=== PATIENT | female | born 1975 | race Caucasian/White ===

== ENCOUNTER 2017-02-25 06:23 | Emergency (ER) | payer SELFPAY ==
[~2017-02-25] VITALS: Ht 172.7 cm; Wt 60.2 kg
[~2017-02-25 06:23] MED LIST: AMOX875 PO; BENZ100 PO; TYLE3 PO; ZITH250T PO
[2017-02-25 06:29] VITALS: BP 115/92; PULSE 94; RESP 14; TEMP 97.9; O2SAT 98
[2017-02-25] MEDS ORDERED: traMADol HCL 50 MG TAB PO ONE (06:45)
[2017-02-25] MEDS ORDERED: SULFAMETHOXAZOLE-TRIMETHOPRIM 400-80 MG TAB PO ONE (06:45)
[2017-02-25] MEDS ORDERED: BACT800T5 PO (06:50)
[2017-02-25] MEDS ORDERED: ULTR50TA5 PO (06:50)
--- NOTE | 2017-02-25 06:51 | PD ---
HPI Chief Complaint: Skin Problem Time Seen by Provider: 06:38 Travel History International Travel<30 days: No Contact w/Intl Traveler<30days: No Traveled to known affect area: No History of Present Illness HPI C/O INSECTS CRAWLING ALL OVER HER AND (PT POINTS TO HER SKIN, TO SHOW ME SOME, WHICH HAS NO INSECTS ON, HOWEVER I DID NOTE THAT SHE WAS PICKING HER SKIN).... WHEN ASKED PATIENT DID STATE THAT SHE HAS BEEN USING METH RECENTLY....DENIES ANY SI/HI AT THIS POINT, AND I ADVISED PATIENT THAT METH CAUSES TACTILE AND SOMETIME VISUAL HALLUCINATIONS OF SENSATION OF BUGS... PATIENT NODDED IN UNDERSTANDING PFSH Past Medical History Anxiety: Yes Diminished Hearing: No Musculoskeletal: Yes (MUSCLE SPASMS FROM PREVIOUS BACK INJURY) Tetanus Vaccination: < 5 Years Influenza Vaccination: No ?: Not LMP: 02/17/17 : 2 Para: 1 : 1 Tubal Ligation: Yes Social History Alcohol Use: Yes ("HARDLY EVER DRINK ANYMORE" STATED 02/25/17) Tobacco Use: Yes (1 PPD) Substance Use: No Allergies-Medications (Allergen,Severity, Reaction): Coded Allergies: No Known Allergies (Verified , 02/25/17) Reported Meds & Prescriptions Reported Meds & Active Scripts Active Ultram (Tramadol HCl) 50 Mg Tab 50 Mg PO Q6H PRN Bactrim DS (Sulfamethoxazole-Trimethoprim) 800-160 Mg Tab 1 Tab PO BID Review of Systems Except as stated in HPI: all other systems reviewed are Neg Physical Exam Narrative GENERAL: SKIN: patient has multiple lesions throughout ventral aspect of her forearms, abdomen c/w skin picking...no lesions on posterior aspect of body where her hands can't reach, also missing from her LE. HEAD: Atraumatic. Normocephalic. EYES: Pupils equal and round. No scleral icterus. No injection or drainage. ENT: No nasal bleeding or discharge. Mucous membranes pink and moist. NECK: Trachea midline. No JVD. CARDIOVASCULAR: Regular rate and rhythm. RESPIRATORY: No accessory muscle use. Clear to auscultation. Breath sounds equal bilaterally. GASTROINTESTINAL: Abdomen soft, non-tender, nondistended. Hepatic and splenic margins not palpable. MUSCULOSKELETAL: Extremities without clubbing, cyanosis, or edema. No obvious deformities. NEUROLOGICAL: Awake and alert. No obvious cranial nerve deficits. Motor grossly within normal limits. Five out of 5 muscle strength in the arms and legs. Normal speech. PSYCHIATRIC: Appropriate mood and affect; insight and judgment normal. denies SI/HI Data Data Last Documented VS Vital Signs Date Time Temp Pulse Resp B/P Pulse Ox O2 Delivery O2 Flow Rate FiO2 02/25/17 06:29 97.9 94 14 115/92 98 Orders Sulfameth-Trimeth 400-80 Mg (Bactrim 400 (02/25/17 06:45) Tramadol (Ultram) (02/25/17 06:45) MDM Medical Decision Making Medical Screen Exam Complete: Yes Emergency Medical Condition: Yes Differential Diagnosis SKIN LESION LIKELY SECONDARY TO SELF INDUCED PICKING (NO TRACK LINARES) AND NOW ONLY SECONDARY CELLULITIS IN CERTAIN ONES Narrative Course SEE ABOVE Diagnosis Primary Impression: SKIN LESIONS Additional Impression: Cellulitis Qualified Code: L03.119 - Cellulitis of upper extremity, unspecified laterality Med/Other Pt SpecificInfo: Prescription(s) given Scripts Tramadol (Ultram)50 Mg Tab50 Mg PO Q6H PRN (PAIN) #10 TAB Ref 0 Prov:Flaquito Stubbs MD 02/25/17 Sulfamethoxazole-Trimethoprim (Bactrim DS)800-160 Mg Tab1 Tab PO BID #20 TAB Prov:Flaquito Stubbs MD 02/25/17 Disposition: 01 DISCHARGE HOME Condition: Stable Flaquito Stubbs MD Feb 25, 2017 06:51
== END 2017-02-25 07:19 | disposition home or self-care (01) ==
LOC: PHED 06:23
DX: L98.9 Disorder of the skin and subcutaneous tissue, unspecified (principal); L03.119 Cellulitis of unspecified part of limb; R44.2 Other hallucinations; F17.200 Nicotine dependence, unspecified, uncomplicated; Z86.59 Personal history of other mental and behavioral disorders; Z87.39 Personal history of other diseases of the musculoskeletal system and connective tissue
CPT/HCPCS: 99284

== ENCOUNTER 2017-03-10 23:00 | Emergency (ER) | payer OTHER ==
[~2017-03-10] VITALS: Ht 165.1 cm; Wt 60.0 kg
[~2017-03-10 23:00] MED LIST changes: -AMOX875 PO; +BACT800T5 PO; -BENZ100 PO; -TYLE3 PO; +ULTR50TA5 PO; -ZITH250T PO
[2017-03-10 23:16] VITALS: BP 110/64; PULSE 88; RESP 16; TEMP 98.2; O2SAT 97
--- NOTE | 2017-03-10 23:24 | PD ---
HPI Chief Complaint: psychiatric Time Seen by Provider: 23:06 Travel History International Travel<30 days: No Contact w/Intl Traveler<30days: No Traveled to known affect area: No History of Present Illness HPI 41-year-old female with headache acted and brought in for psychiatric evaluation. Patient was reported to have visual hallucination by her boyfriend. Patient states that she has bugs on her skin of the arms and legs for the past 2 weeks. Patient states that she was seen at [facility] in [facility] twice and was treated for scabies. Patient states that she put the cream on the skin between 10 minutes to half an hour each time. Patient states that she had persistent itching rash on the arms and legs the past 2 weeks. Patient states that she has been seeing worms and bugs coming out from the lesions on the skin. Patient complained of itching from the rash. Patient denies any headache. Patient denies any chest pain or shortness of breath. Patient denies abdominal pain. Patient denies any fever chills. Patient denies any chance of being . Patient states that she drinks alcohol occasionally. Patient states that she smoked pot once in a while. Patient states that she has been taking oral Dilaudid recently. PFSH Past Medical History Anxiety: Yes Diminished Hearing: No Musculoskeletal: Yes (MUSCLE SPASMS FROM PREVIOUS BACK INJURY) : 2 Para: 1 : 1 Tubal Ligation: Yes Social History Alcohol Use: Yes ("HARDLY EVER DRINK ANYMORE" STATED 02/25/17) Tobacco Use: Yes (1 PPD) Substance Use: No Allergies-Medications (Allergen,Severity, Reaction): Coded Allergies: No Known Allergies (Verified , 03/10/17) Reported Meds & Prescriptions Reported Meds & Active Scripts Active No Active Prescriptions or Reported Medications Review of Systems General / Constitutional: No: Fever Eyes: No: Visual changes HENT: No: Headaches Cardiovascular: No: Chest Pain or Discomfort Respiratory: No: Shortness of Breath Gastrointestinal: No: Abdominal Pain Genitourinary: No: Dysuria Musculoskeletal: No: Pain Skin: Positive Rash, Positive Itching Neurologic: No: Weakness Psychiatric: No: Depression Endocrine: No: Polydipsia Hematologic/Lymphatic: No: Easy Bruising Physical Exam Narrative GENERAL: Well-nourished, well-developed patient. SKIN: Focused skin assessment warm/dry. Patient has diffuse papular rash on the arms and legs upper chest. Patient also has mild papular rash on the abdominal wall. No obvious rash in the back or the groin area. HEAD: Normocephalic. EYES: No scleral icterus. No injection or drainage. NECK: Supple, trachea midline. No JVD or lymphadenopathy. CARDIOVASCULAR: Regular rate and rhythm without murmurs, gallops, or rubs. RESPIRATORY: Breath sounds equal bilaterally. No accessory muscle use. GASTROINTESTINAL: Abdomen soft, non-tender, nondistended. MUSCULOSKELETAL: No cyanosis, or edema. BACK: Nontender without obvious deformity. No CVA tenderness. Neurologic exam: Patient is awake and alert oriented 3. No obvious focal neurological deficit. Data Data Orders Complete Blood Count With Diff (03/10/17 23:17) Comprehensive Metabolic Panel (03/10/17 23:17) Urinalysis - C+S If Indicated (03/10/17 23:17) Psych Screen (03/10/17 23:17) Drug Screen, Random Urine (03/10/17 23:17) MDM Medical Decision Making Medical Screen Exam Complete: Yes Emergency Medical Condition: Yes Differential Diagnosis Differential diagnosis including schizophrenia, psychosis, substance induced mood disorder, contact dermatitis, scabies. Narrative Course 41-year-old female was Anand acted for visual hallucination and itching rash on the extremity. Scripts No Active Prescriptions or Reported Meds Augustine Ibarra MD Mar 10, 2017 23:24
[2017-03-11 00:02] LABS: AUTOMATED NEUTROPHIL # 3.5 TH/MM3 (1.8-7.7); BASOPHIL % 0.7 % (0.0-2.0); EOSINOPHIL # 0.3 TH/MM3 (0-0.4); EOSINOPHIL % 4.5 % (0.0-4.0); HEMATOCRIT 35.9 % (35.0-46.0); HEMO FLAGS DIFF FINAL; LYMPH % 35.2 % (9.0-44.0); LYMPHOCYTE # 2.4 TH/MM3 (1.0-4.8); MEAN CELL VOLUME 93.1 FL (80.0-100.0); MEAN CORPUSCULAR HEMOGLOBIN 32.2 PG (27.0-34.0); MEAN CORPUSCULAR HGB CONC 34.6 % (32.0-36.0); MONO % 6.6 % (0.0-8.0); PLATELET COUNT 209 TH/MM3 (150-450); RED BLOOD COUNT 3.85 MIL/MM3 (4.00-5.30); RED CELL DISTRIBUTION WIDTH 13.3 % (11.6-17.2); WHITE BLOOD COUNT 6.7 TH/MM3 (4.0-11.0)
[2017-03-11 00:14] LABS: BACTERIA, URINE OCC /hpf; BLOOD, URINE NEG (NEG); GLUCOSE,URINE NEG (NEG); KETONE, URINE NEG (NEG); MUCUS URINE FEW /lpf (OCC); NITRITE,URINE NEG (NEG); SQUAMOUS EPITHELIAL CELL URINE 14 /hpf (0-5); URINE COLOR YELLOW (YELLW/STRAW)
[2017-03-11 00:15] LABS: COMMENT (UR) CULT NOT INDICATED; CULTURE IF INDICATED CULT NOT INDICATED
[2017-03-11 00:18] LABS: AMPHETAMINE, URINE POS (NEG); BARBITURATES, URINE NEG (NEG); COCAINE, URINE NEG (NEG)
[2017-03-11 00:21] LABS: ANION GAP 7 MEQ/L (5-15); AST (GOT) 26 U/L (15-37); BICARBONATE 28.1 MEQ/L (21.0-32.0); BLOOD UREA NITROGEN 12 MG/DL (7-18); CHLORIDE 105 MEQ/L (98-107); GLOMERULAR FILTRATION RATE 71 ML/MIN (>89); POTASSIUM 3.3 MEQ/L (3.5-5.1); SODIUM (NA) 140 MEQ/L (136-145)
[2017-03-11 00:26] LABS: ALKALINE PHOSPHATASE 67 U/L (45-117); ALT (GPT) 29 U/L (10-53); TOTAL BILIRUBIN ADULT 0.5 MG/DL (0.2-1.0)
--- NOTE | 2017-03-11 00:58 | PD ---
Physical Exam Date Seen by Provider: Mar 11, 2017 Time Seen by Provider: 00:57 Data Data Last Documented VS Vital Signs Date Time Temp Pulse Resp B/P Pulse Ox O2 Delivery O2 Flow Rate FiO2 03/10/17 23:19 16 03/10/17 23:16 98.2 88 110/64 97 Orders Complete Blood Count With Diff (03/10/17 23:17) Comprehensive Metabolic Panel (03/10/17 23:17) Urinalysis - C+S If Indicated (03/10/17 23:17) Psych Screen (03/10/17 23:17) Drug Screen, Random Urine (03/10/17 23:17) Labs Laboratory Tests Test 03/10/17 23:40 White Blood Count 6.7 TH/MM3 Red Blood Count 3.85 MIL/MM3 Hemoglobin 12.4 GM/DL Hematocrit 35.9 % Mean Corpuscular Volume 93.1 FL Mean Corpuscular Hemoglobin 32.2 PG Mean Corpuscular Hemoglobin 34.6 % Concent Red Cell Distribution Width 13.3 % Platelet Count 209 TH/MM3 Mean Platelet Volume 8.1 FL Neutrophils (%) (Auto) 53.0 % Lymphocytes (%) (Auto) 35.2 % Monocytes (%) (Auto) 6.6 % Eosinophils (%) (Auto) 4.5 % Basophils (%) (Auto) 0.7 % Neutrophils # (Auto) 3.5 TH/MM3 Lymphocytes # (Auto) 2.4 TH/MM3 Monocytes # (Auto) 0.4 TH/MM3 Eosinophils # (Auto) 0.3 TH/MM3 Basophils # (Auto) 0.0 TH/MM3 CBC Comment DIFF FINAL Differential Comment Urine Color YELLOW Urine Turbidity HAZY Urine pH 6.0 Urine Specific [place] 1.026 Urine Protein TRACE mg/dL Urine Glucose (UA) NEG mg/dL Urine Ketones NEG mg/dL Urine Occult Blood NEG Urine Nitrite NEG Urine Bilirubin NEG Urine Urobilinogen LESS THAN 2.0 MG/DL Urine Leukocyte Esterase SMALL Urine RBC 1 /hpf Urine WBC 3 /hpf Urine Squamous Epithelial 14 /hpf Cells Urine Bacteria OCC /hpf Urine Mucus FEW /lpf Microscopic Urinalysis Comment CULT NOT INDICATED Sodium Level 140 MEQ/L Potassium Level 3.3 MEQ/L Chloride Level 105 MEQ/L Carbon Dioxide Level 28.1 MEQ/L Anion Gap 7 MEQ/L Blood Urea Nitrogen 12 MG/DL Creatinine 0.88 MG/DL Estimat Glomerular Filtration 71 ML/MIN Rate Random Glucose 92 MG/DL Calcium Level 8.6 MG/DL Total Bilirubin 0.5 MG/DL Aspartate Amino Transf 26 U/L (AST/SGOT) Alanine Aminotransferase 29 U/L (ALT/SGPT) Alkaline Phosphatase 67 U/L Total Protein 6.6 GM/DL Albumin 3.6 GM/DL Urine Opiates Screen NEG Urine Barbiturates Screen NEG Urine Amphetamines Screen POS Urine Benzodiazepines Screen NEG Urine Cocaine Screen NEG Urine Cannabinoids Screen NEG [facility] Medical Record Reviewed: Yes Supervised Visit with BATSHEVA: Yes Interpretation(s) Laboratory Tests Test 03/10/17 23:40 White Blood Count 6.7 TH/MM3 Red Blood Count 3.85 MIL/MM3 Hemoglobin 12.4 GM/DL Hematocrit 35.9 % Mean Corpuscular Volume 93.1 FL Mean Corpuscular Hemoglobin 32.2 PG Mean Corpuscular Hemoglobin 34.6 % Concent Red Cell Distribution Width 13.3 % Platelet Count 209 TH/MM3 Mean Platelet Volume 8.1 FL Neutrophils (%) (Auto) 53.0 % Lymphocytes (%) (Auto) 35.2 % Monocytes (%) (Auto) 6.6 % Eosinophils (%) (Auto) 4.5 % Basophils (%) (Auto) 0.7 % Neutrophils # (Auto) 3.5 TH/MM3 Lymphocytes # (Auto) 2.4 TH/MM3 Monocytes # (Auto) 0.4 TH/MM3 Eosinophils # (Auto) 0.3 TH/MM3 Basophils # (Auto) 0.0 TH/MM3 CBC Comment DIFF FINAL Differential Comment Urine Color YELLOW Urine Turbidity HAZY Urine pH 6.0 Urine Specific [place] 1.026 Urine Protein TRACE mg/dL Urine Glucose (UA) NEG mg/dL Urine Ketones NEG mg/dL Urine Occult Blood NEG Urine Nitrite NEG Urine Bilirubin NEG Urine Urobilinogen LESS THAN 2.0 MG/DL Urine Leukocyte Esterase SMALL Urine RBC 1 /hpf Urine WBC 3 /hpf Urine Squamous Epithelial 14 /hpf Cells Urine Bacteria OCC /hpf Urine Mucus FEW /lpf Microscopic Urinalysis Comment CULT NOT INDICATED Sodium Level 140 MEQ/L Potassium Level 3.3 MEQ/L Chloride Level 105 MEQ/L Carbon Dioxide Level 28.1 MEQ/L Anion Gap 7 MEQ/L Blood Urea Nitrogen 12 MG/DL Creatinine 0.88 MG/DL Estimat Glomerular Filtration 71 ML/MIN Rate Random Glucose 92 MG/DL Calcium Level 8.6 MG/DL Total Bilirubin 0.5 MG/DL Aspartate Amino Transf 26 U/L (AST/SGOT) Alanine Aminotransferase 29 U/L (ALT/SGPT) Alkaline Phosphatase 67 U/L Total Protein 6.6 GM/DL Albumin 3.6 GM/DL Urine Opiates Screen NEG Urine Barbiturates Screen NEG Urine Amphetamines Screen POS Urine Benzodiazepines Screen NEG Urine Cocaine Screen NEG Urine Cannabinoids Screen NEG Differential Diagnosis MDM: High Differential diagnoses: Schizophrenia, schizoaffective disorder, bipolar, anxiety, depression, adjustment reaction, mood disorder NOS, ODD, depressive disorder NOS, dementia, dementia with agitation, psychosis NOS, substance induced mood disorder, intermittent explosive disorder, Asperger syndrome, infection,electrolyte abnormality, malingering. Narrative Course Mental health screening discussed with the patient. Psychiatric screen ordered. The patient is been medically cleared. Patient's drug screen positive for amphetamines. I suspect this is a formication from substance abuse. Diagnosis Primary Impression: Medical clearance for psychiatric admission Additional Impressions: Psychogenic formication Substance induced mood disorder Scripts No Active Prescriptions or Reported Meds Condition: Isaac Dey Mar 11, 2017 00:58
[2017-03-11 08:55] VITALS: BP 105/68; PULSE 84; RESP 16; O2SAT 98
[2017-03-11 11:30] VITALS: BP 95/57; PULSE 81; RESP 18; TEMP 98.2; O2SAT 97
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
[2017-03-11 14:41] VITALS: BP 101/57; PULSE 92; RESP 18; TEMP 97.6; O2SAT 97
[2017-03-11 18:00] VITALS: BP 105/65; PULSE 101; RESP 18; TEMP 96.9; O2SAT 99
[2017-03-11 22:04] VITALS: BP 100/56; PULSE 101; RESP 18
[2017-03-12 01:51] VITALS: BP 108/70; PULSE 85; RESP 18
[2017-03-12] MEDS ORDERED: ACETAMINOPHEN 500 MG CPLT PO ONE (02:00)
[2017-03-12 06:05] VITALS: BP 109/69; PULSE 76; RESP 18
== END 2017-03-12 09:31 | disposition home or self-care (01) ==
LOC: NEPD 23:00 → NEPJ 03-12 09:31
DX: F23 Brief psychotic disorder (principal); F19.10 Other psychoactive substance abuse, uncomplicated; F45.8 Other somatoform disorders; F17.200 Nicotine dependence, unspecified, uncomplicated
CPT/HCPCS: 80053; 80307; 81001; 85025; 99284

== ENCOUNTER 2017-05-11 17:28 | Emergency (ER) | payer OTHER ==
[~2017-05-11] VITALS: Ht 162.6 cm; Wt 60.0 kg
[2017-05-11 17:30] VITALS: BP 113/75; PULSE 92; RESP 16; TEMP 98.4; O2SAT 100
--- NOTE | 2017-05-11 18:03 | PD ---
HPI Chief Complaint: Medical Clearance Time Seen by Provider: 18:00 Travel History International Travel<30 days: No Contact w/Intl Traveler<30days: No Traveled to known affect area: No History of Present Illness HPI 42-year-old female presents to the emergency department under ex parte court order by local police for psychiatric/substance abuse treatment. According to the court order, the patient uses multiple substances and may harm herself. Apparently, she carries a loaded pistol around. The patient states that the individual who filed this court order also uses multiple illicit drugs, actually more than she does. She is unsure why this court order was placed. She does state that she smoked methamphetamine 2 days ago. She reports history of abuse of other drugs, but not recently. She states she does not routinely inject, but has injected before. She has no medical complaints today. PFSH Past Medical History Anxiety: Yes Diminished Hearing: No Musculoskeletal: Yes (MUSCLE SPASMS FROM PREVIOUS BACK INJURY) Schizophrenia: Yes ?: Not : 2 Para: 1 : 1 Tubal Ligation: Yes Social History Alcohol Use: Yes (2 SHOTS DAILY) Tobacco Use: Yes (1 PPD) Substance Use: Yes ("DILAUDID" METH) Allergies-Medications (Allergen,Severity, Reaction): Coded Allergies: No Known Allergies (Verified , 03/10/17) Reported Meds & Prescriptions Reported Meds & Active Scripts Active No Active Prescriptions or Reported Medications Review of Systems Except as stated in HPI: all other systems reviewed are Neg Physical Exam Narrative GENERAL: Well-nourished, well-developed female patient, afebrile SKIN: Focused skin assessment warm/dry. Patient has multiple scabs the bilateral upper extremities. HEAD: Normocephalic. Atraumatic. EYES: No scleral icterus. No injection or drainage. NECK: Supple, trachea midline. No JVD or lymphadenopathy. CARDIOVASCULAR: Regular rate and rhythm without murmurs, gallops, or rubs. RESPIRATORY: Breath sounds equal bilaterally. No accessory muscle use. Lungs sounds are clear to auscultation GASTROINTESTINAL: Abdomen soft, non-tender, nondistended. MUSCULOSKELETAL: No cyanosis, or edema. PSYCHIATRIC: No delusional thought processes. No hallucinations. Data Data Last Documented VS Vital Signs Date Time Temp Pulse Resp B/P Pulse Ox O2 Delivery O2 Flow Rate FiO2 05/11/17 17:30 98.4 92 16 113/75 100 Orders Complete Blood Count With Diff (05/11/17 17:59) Comprehensive Metabolic Panel (05/11/17 17:59) Psych Screen (05/11/17 17:59) Drug Screen, Random Urine (05/11/17 17:59) Alcohol (Ethanol) (05/11/17 17:59) Labs Laboratory Tests Test 05/11/17 18:00 White Blood Count 6.8 TH/MM3 Red Blood Count 4.37 MIL/MM3 Hemoglobin 13.7 GM/DL Hematocrit 40.3 % Mean Corpuscular Volume 92.3 FL Mean Corpuscular Hemoglobin 31.4 PG Mean Corpuscular Hemoglobin 34.0 % Concent Red Cell Distribution Width 12.9 % Platelet Count 252 TH/MM3 Mean Platelet Volume 8.3 FL Neutrophils (%) (Auto) 50.9 % Lymphocytes (%) (Auto) 39.7 % Monocytes (%) (Auto) 7.4 % Eosinophils (%) (Auto) 1.4 % Basophils (%) (Auto) 0.6 % Neutrophils # (Auto) 3.5 TH/MM3 Lymphocytes # (Auto) 2.7 TH/MM3 Monocytes # (Auto) 0.5 TH/MM3 Eosinophils # (Auto) 0.1 TH/MM3 Basophils # (Auto) 0.0 TH/MM3 CBC Comment DIFF FINAL Differential Comment Sodium Level 141 MEQ/L Potassium Level 3.5 MEQ/L Chloride Level 106 MEQ/L Carbon Dioxide Level 28.4 MEQ/L Anion Gap 7 MEQ/L Blood Urea Nitrogen 14 MG/DL Creatinine 1.02 MG/DL Estimat Glomerular Filtration 60 ML/MIN Rate Random Glucose 90 MG/DL Calcium Level 8.8 MG/DL Total Bilirubin 0.6 MG/DL Aspartate Amino Transf 21 U/L (AST/SGOT) Alanine Aminotransferase 30 U/L (ALT/SGPT) Alkaline Phosphatase 62 U/L Total Protein 7.2 GM/DL Albumin 3.9 GM/DL Ethyl Alcohol Level LESS THAN 3 MG/DL MDM Medical Decision Making Medical Screen Exam Complete: Yes Emergency Medical Condition: Yes Medical Record Reviewed: Yes Differential Diagnosis Substance abuse versus substance induced mood disorder versus depression versus anxiety Narrative Course 42-year-old female presents to the emergency Department under court order for psychiatric evaluation. CBC, CMP, alcohol level, urine drug screen are ordered and pending. CBC shows no acute abnormality. CMP shows no acute abnormality. Alcohol level is less than 3. UDS is pending I called [facility] at [phone]. They stated that they put her on a list for a bed and will contact us when it becomes available. Patient is medically cleared for detox facility. Diagnosis Primary Impression: Polysubstance abuse Additional Instructions: Patient is medically cleared for detox facility. Scripts No Active Prescriptions or Reported Meds Condition: Janet Alexander May 11, 2017 18:03
[2017-05-11 18:26] LABS: AUTOMATED NEUTROPHIL # 3.5 TH/MM3 (1.8-7.7); BASOPHIL % 0.6 % (0.0-2.0); EOSINOPHIL # 0.1 TH/MM3 (0-0.4); EOSINOPHIL % 1.4 % (0.0-4.0); HEMATOCRIT 40.3 % (35.0-46.0); HEMO FLAGS DIFF FINAL; LYMPH % 39.7 % (9.0-44.0); LYMPHOCYTE # 2.7 TH/MM3 (1.0-4.8); MEAN CELL VOLUME 92.3 FL (80.0-100.0); MEAN CORPUSCULAR HEMOGLOBIN 31.4 PG (27.0-34.0); MONO % 7.4 % (0.0-8.0); NEUT % 50.9 % (16.0-70.0); PLATELET COUNT 252 TH/MM3 (150-450); RED BLOOD COUNT 4.37 MIL/MM3 (4.00-5.30); RED CELL DISTRIBUTION WIDTH 12.9 % (11.6-17.2); WHITE BLOOD COUNT 6.8 TH/MM3 (4.0-11.0)
[2017-05-11 18:43] LABS: ALT (GPT) 30 U/L (10-53); ANION GAP 7 MEQ/L (5-15); AST (GOT) 21 U/L (15-37); BICARBONATE 28.4 MEQ/L (21.0-32.0); BLOOD UREA NITROGEN 14 MG/DL (7-18); CHLORIDE 106 MEQ/L (98-107); GLOMERULAR FILTRATION RATE 60 ML/MIN (>89); POTASSIUM 3.5 MEQ/L (3.5-5.1); SODIUM (NA) 141 MEQ/L (136-145)
[2017-05-11 18:44] LABS: ALKALINE PHOSPHATASE 62 U/L (45-117); TOTAL BILIRUBIN ADULT 0.6 MG/DL (0.2-1.0)
[2017-05-11 18:49] LABS: ALCOHOL LESS THAN 3 MG/DL (0-5)
[2017-05-11 19:29] VITALS: BP 95/65; PULSE 91; RESP 16; O2SAT 100
[2017-05-12 06:23] VITALS: BP 112/55; PULSE 62; RESP 14; TEMP 98.3; O2SAT 98
[2017-05-12] MEDS ORDERED: ACETAMINOPHEN 325 MG TAB PO ONE (06:45)
[2017-05-12 07:36] VITALS: BP 102/71; PULSE 87; RESP 16; O2SAT 100
[2017-05-12] MEDS ORDERED: CALCIUM CARBONATE 500 MG CHEWABLE TAB CHEW ONE (12:45)
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
== END 2017-05-12 14:54 | disposition home or self-care (01) ==
LOC: NEPD 17:28
DX: Z02.89 Encounter for other administrative examinations (principal); F15.151 Other stimulant abuse with stimulant-induced psychotic disorder with hallucinations; F19.10 Other psychoactive substance abuse, uncomplicated; F17.290 Nicotine dependence, other tobacco product, uncomplicated
CPT/HCPCS: 80053; 80307; 85025; 99283

== ENCOUNTER 2018-02-01 19:06 | Emergency (ER) | payer OTHER ==
[2018-02-01 19:13] VITALS: BP 113/78; PULSE 103; RESP 16; O2SAT 97
[2018-02-01 19:20] VITALS: TEMP 98.3
[2018-02-01] MEDS ORDERED: SODIUM CHLORIDE 0.9% FLUSH 10 ML FLUSH IVF PRN (19:30)
[2018-02-01 19:56] LABS: AUTOMATED NEUTROPHIL # 4.1 TH/MM3 (1.8-7.7); BASOPHIL % 0.5 % (0.0-2.0); EOSINOPHIL # 0.1 TH/MM3 (0-0.4); EOSINOPHIL % 1.5 % (0.0-4.0); HEMATOCRIT 41.5 % (35.0-46.0); HEMOGLOBIN 14.2 GM/DL (11.6-15.3); LYMPH % 36.9 % (9.0-44.0); LYMPHOCYTE # 2.7 TH/MM3 (1.0-4.8); MEAN CELL VOLUME 93.5 FL (80.0-100.0); MEAN CORPUSCULAR HGB CONC 34.3 % (32.0-36.0); MEAN PLATELET VOLUME 8.7 FL (7.0-11.0); MONO % 5.1 % (0.0-8.0); MONOCYTE # 0.4 TH/MM3 (0-0.9); PLATELET COUNT 250 TH/MM3 (150-450); RED BLOOD COUNT 4.44 MIL/MM3 (4.00-5.30); RED CELL DISTRIBUTION WIDTH 13.8 % (11.6-17.2); WHITE BLOOD COUNT 7.4 TH/MM3 (4.0-11.0)
[2018-02-01 19:58] LABS: PROTHROMBIN TIME - PATIENT 10.4 SEC (9.8-11.6)
--- NOTE | 2018-02-01 20:01 | RADRPT ---
EXAM DATE/TIME: 02/01/2018 19:33 [place] COMPARISON: No previous studies available for comparison. INDICATIONS : Shortness of breath. MEDICAL HISTORY : None. SURGICAL HISTORY : None. ENCOUNTER: Initial ACUITY: 1 day PAIN SCORE: 0/10 LOCATION: Bilateral chest FINDINGS: A single view of the chest demonstrates the lungs to be symmetrically aerated without evidence of mas s, infiltrate or effusion. The cardiomediastinal contours are unremarkable. Osseous structures are intact. CONCLUSION: No acute disease. Dewey Hackett Jr., MD on February 01, 2018 at 19:58 Board Certified Radiologist. This report was verified electronically.
[2018-02-01 20:06] VITALS: O2SAT 100
[2018-02-01 20:17] LABS: BICARBONATE 21.2 MEQ/L (21.0-32.0); BLOOD UREA NITROGEN 16 MG/DL (7-18); CALCIUM 9.2 MG/DL (8.5-10.1); CHLORIDE 109 MEQ/L (98-107); CREATININE 0.85 MG/DL (0.50-1.00); GLOMERULAR FILTRATION RATE 74 ML/MIN (>89); GLUCOSE,RANDOM 104 MG/DL (74-106); SODIUM (NA) 143 MEQ/L (136-145)
[2018-02-01 20:21] LABS: TROPONIN I LESS THAN 0.02 NG/ML (0.02-0.05)
[2018-02-01 20:37] LABS: BILIRUBIN, URINE NEG (NEG); BLOOD, URINE NEG (NEG); GLUCOSE,URINE NEG (NEG); HYALINE CAST, URINE 2 /lpf (RARE); KETONE, URINE NEG (NEG); NITRITE,URINE NEG (NEG); PH, URINE 5.5 (5.0-8.5); SQUAMOUS EPITHELIAL CELL URINE <1 /hpf (0-5); URINE COLOR LIGHT-YELLOW (YELLW/STRAW); URINE LEUKOCYTE ESTERASE NEG (NEG)
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
[2018-02-01] MEDS ORDERED: POTASSIUM CHLORIDE 20 MEQ CONTROLLED RELEASE TAB PO ONE (21:15)
--- NOTE | 2018-02-01 21:28 | PD ---
Data Data Last Documented VS Vital Signs Date Time Temp Pulse Resp B/P (MAP) Pulse Ox O2 Delivery O2 Flow Rate FiO2 02/01/18 20:06 100 Room Air 02/01/18 19:20 98.3 02/01/18 19:13 103 16 113/78 (90) Orders Orders Complete Blood Count With Diff (02/01/18 19:18) Basic Metabolic Panel (Bmp) (02/01/18 19:18) Act Partial Throm Time (Ptt) (02/01/18:18) Prothrombin Time / Inr (Pt) (02/01/18:18) Ckmb (Isoenzyme) Profile (02/01/18:18) Troponin I (02/01/18:18) Urinalysis - C+S If Indicated (02/01/18:18) Influenzae A/B Antigen (02/01/18:18) Iv Access Insert/Monitor (02/01/18:18) Electrocardiogram (02/01/18:18) Ecg Monitoring (02/01/18:18) Oximetry (02/01/18:18) Chest, Single Ap (02/01/18:18) Sodium Chloride 0.9% Flush (Ns Flush) (02/01/18 19:30) Ed Urine Pregnancytest Poc (02/01/18 19:18) CKMB (02/01/18 19:25) CKMB% (02/01/18 19:25) Drug Screen, Random Urine (02/01/18 20:52) Potassium Chloride (Kcl) (02/01/18 21:15) Ed Discharge Order (02/01/18 21:25) Labs Laboratory Tests Test 02/01/18 19:25 02/01/18 19:50 White Blood Count 7.4 TH/MM3 Red Blood Count 4.44 MIL/MM3 Hemoglobin 14.2 GM/DL Hematocrit 41.5 % Mean Corpuscular Volume 93.5 FL Mean Corpuscular Hemoglobin 32.0 PG Mean Corpuscular Hemoglobin Concent 34.3 % Red Cell Distribution Width 13.8 % Platelet Count 250 TH/MM3 Mean Platelet Volume 8.7 FL Neutrophils (%) (Auto) 56.0 % Lymphocytes (%) (Auto) 36.9 % Monocytes (%) (Auto) 5.1 % Eosinophils (%) (Auto) 1.5 % Basophils (%) (Auto) 0.5 % Neutrophils # (Auto) 4.1 TH/MM3 Lymphocytes # (Auto) 2.7 TH/MM3 Monocytes # (Auto) 0.4 TH/MM3 Eosinophils # (Auto) 0.1 TH/MM3 Basophils # (Auto) 0.0 TH/MM3 CBC Comment DIFF FINAL Differential Comment Prothrombin Time 10.4 SEC Prothromb Time International Ratio 1.0 RATIO Activated Partial Thromboplast Time 24.8 SEC Blood Urea Nitrogen 16 MG/DL Creatinine 0.85 MG/DL Random Glucose 104 MG/DL Calcium Level 9.2 MG/DL Sodium Level 143 MEQ/L Potassium Level 3.2 MEQ/L Chloride Level 109 MEQ/L Carbon Dioxide Level 21.2 MEQ/L Anion Gap 13 MEQ/L Estimat Glomerular Filtration Rate 74 ML/MIN Total Creatine Kinase 144 U/L Creatine Kinase MB 2.4 NG/ML Troponin I LESS THAN 0.02 NG/ML Urine Color LIGHT-YELLOW Urine Turbidity CLEAR Urine pH 5.5 Urine Specific [place] 1.008 Urine Protein NEG mg/dL Urine Glucose (UA) NEG mg/dL Urine Ketones NEG mg/dL Urine Occult Blood NEG Urine Nitrite NEG Urine Bilirubin NEG Urine Urobilinogen LESS THAN 2.0 MG/DL Urine Leukocyte Esterase NEG Urine WBC LESS THAN 1 /hpf Urine Squamous Epithelial Cells <1 /hpf Urine Hyaline Casts 2 /lpf Microscopic Urinalysis Comment CULT NOT INDICATED Urine Opiates Screen NEG Urine Barbiturates Screen NEG Urine Amphetamines Screen NEG Urine Benzodiazepines Screen NEG Urine Cocaine Screen NEG Urine Cannabinoids Screen NEG MDM Medical Record Reviewed: Yes Supervised Visit with BATSHEVA: Yes Narrative Course I, Dr. Sanchez, have reviewed the advance practice practitioner's documentation and am in agreement, met with the patient face to face, made the diagnosis, and the medical decision making was done by me. *My assessment and Findings: The patient's 42 years old. She was arrested today and at that point had cardiopulmonary complaints. Workup is unremarkable. The patient has been resting here for a couple hours. At 9:30 PM the heart rate is 97 with blood pressure 99/63 and O2 sat 100% on room air. Patient is safe for discharge under care custody of law enforcement. Diagnosis Primary Impression: LILLY (dyspnea on exertion) Referrals: [facility] Patient Instructions: General Instructions Departure Forms: Tests/Procedures Additional Instruction: Rest, hydrate. Stop smoking. Follow-up with the [facility] for further evaluation. Return to the ED for worsening symptoms or any urgent or emergent medical condition. Scripts No Active Prescriptions or Reported Meds Disposition: [address] LAW ENFORCEMNT Condition: Stable Yuriy Sanchez MD February 01, 2018 21:28
[2018-02-01 21:37] VITALS: BP 100/63
--- NOTE | 2018-02-02 18:27 | EKG ---
Date Performed: 02/01/2018 Time Performed: 19:21:16 PTAGE: 42 years EKG: SINUS TACHYCARDIA ABNORMAL RHYTHM ECG NO PREVIOUS TRACING DOCTOR: Jeff Hartley Interpretating Date/Time 02/02/2018 18:26:02
== END 2018-02-01 21:43 ==
LOC: NEPC 19:06
DX: R06.09 Other forms of dyspnea (principal); F17.210 Nicotine dependence, cigarettes, uncomplicated; E83.51 Hypocalcemia; R07.89 Other chest pain
CPT/HCPCS: 71045; 80048; 80307; 81001; 82550; 82552; 84484; 84703; 85025; 85610; 85730; 87804; 93005; 99285